=== PATIENT | female | born 1930 | race Asian ===

== ENCOUNTER → 2016-05-04 | Outpatient (CLI) | payer OTHER ==
[~2016-05-04] MED LIST: AMLO1CAP62 PO; ATOR10TA84 PO
== END | disposition home or self-care (01) ==
LOC: RADPV 11:40
PROVIDERS: ATTEND Family Medicine
DX: M16.11 Unilateral primary osteoarthritis, right hip (principal); Z91.81 History of falling
CPT/HCPCS: 73502

== ENCOUNTER → 2016-05-18 | Outpatient (CLI) | payer OTHER | END | disposition home or self-care (01) | LOC: RADPV 08:32 | PROVIDERS: ATTEND Family Medicine | DX: M79.604 Pain in right leg (principal); M79.605 Pain in left leg | CPT/HCPCS: 93925; 93970 ==